=== PATIENT | female | born 1995 | race Caucasian/White ===

== ENCOUNTER 2016-12-06 20:44 | Emergency (ER) | payer OTHER ==
[~2016-12-06] VITALS: Ht 170.2 cm; Wt 54.5 kg
[2016-12-06 21:17] VITALS: BP 113/66; PULSE 69; RESP 16; O2SAT 100
--- NOTE | 2016-12-06 22:14 | ED.REPORT ---
HPI-Extremity Problem Lower Date of Service Dec 06, 2016 ED Provider: Carlo Gaming MD Patient is a 21 year old female presenting to the ED c/o left first toe pain onset 5 days ago. The pain has been progressively worsening and getting more swollen, which has resulted in increased pain when she walks. She has also noticed that the toe is producing green discharge and is concerned that it may be infected. Nursing Notes Stated Complaint: INFECTED TOE NAIL Chief Complaint: Extremity Trauma Nursing Notes Reviewed: Yes Allergies: Coded Allergies: Penicillins (Verified Allergy, Unknown, 12/06/16) General Time Seen by MD: 22:11 Chief Complaint Toe injury left 1 Hx Obtained From: Patient Arrived By: Walk-in Onset Occurred: 5 days ago Symptom Duration: Since onset Location: : Toe left 1 Quality: Painful Recent Healthcare: No recent doctor visit, No recent hospitalization Past Medical History Past Medical History none reported Past Surgical History none reported Smoking History Unknown if Ever Smoker Social History Other Social History: Good social support Ambulatory Status Independent Review of Systems Review of Systems Note: left 1st toe swelling green discharge from left 1st toe Musculoskeletal: Reports: Extremity pain (left first toe), Denies: Back pain Complete sys rev & neg: except as marked. Respiratory: Denies: Non-productive cough Cardiovascular: Denies: Chest pain GI: Denies: Abdominal pain, Nausea, Vomiting Physical Exam Initial Vital Signs Vital Signs (First) Date Time Temp Pulse Resp B/P Pulse Ox O2 Delivery O2 Flow Rate FiO2 12/06/16 21:17 36.5 69 16 113/66 100 Room Air Initial VS: Reviewed, Vital signs normal Lower Extremity / Pelvis / MS: Full range of motion Ankle / Foot: Neurologic intact, Vascular intact medial margin of the left first toe nail is ingrown with some redness and swelling minimal erythema tenderness of associated soft tissues General/Constitutional: Awake, Alert Respiratory / Chest: Atraumatic, Breath sounds NL, Breath sounds = bilat, No respiratory distress Cardiovascular: Heart rate NL, Regular rhythm, Heart sounds NL Skin: Atraumatic, No rash, Warm, Dry Neurologic: Oriented X3, Speech NL, No motor deficits, No sensory deficits Head / Eyes: Atraumatic, Normocephalic, PERRL, EOMI ENT: Atraumatic, Airway patent, Mucous membranes moist Neck: Atraumatic, Supple, Full range of motion Abdomen: Atraumatic, Soft, Non-tender Back: Atraumatic, Full range of motion Upper Extremity / MS: Atraumatic, Inspection NL, Full range of motion Psychiatric: Affect NL, Mood NL Procedures Ingrown Toenail Removal Time: 22:28 Procedure Performed by: ED physician Indication: Pain, Swelling, Erythema, Tenderness, Infection Consent / Setup / Site Prep: Consent from patient, Time-out performed, Hand hygiene observed, Stand sterile technique Skin Preparation Agent: Betadine Digit Involved: Great toe left Digital Block Procedure: Two digital nerve block, Lidocaine 1%, 5cc, 27g needle, Dorsal approach, Needle insert - web space, Anesthesia obtained Removal Procedure: Partial nail removal, Removed with scissors Post-Procedure / Complications: Antibiotic oint applied, Dressing placed, No complications, Condition improved, Tolerated procedure well, Patient stable Re-Eval/Medical Decision Med Decision/Clinical Course Minimally infected ingrown nail. Marginal resection performed without difficulty. Local antibiotic. Oral antibiotic is not needed. Re-Evaluation/Progress : Time of Eval: 22:28 Re-Evaluation/Progress Note: Patient rechecked. An ingrown toe nail removal to the left 1st toe was performed. The patient tolerated well and there were no complications. Discussed with patient diagnosis and plan to discharge. The patient agrees with the plan. All questions were addressed at this time. Counseled Regarding: Diagnosis, Need for follow-up, When/why to return to ED Discharge & Departure Impression: Primary Impression: Ingrown nail of great toe of left foot Additional Impression: Ingrowing nail with infection Disposition: Home Discharge Condition All VS Reviewed: Yes Condition: Stable Patient Instructions: Partial Nail Avulsion for Ingrown Nail (DC) Additional Instructions: The margin of the nail was removed. Leave the dressing in place for 48 hours, then daily dressing change with bacitracin and a Band-Aid. Okay to get it wet after 48 hours but do not soak it (no bathtub, no hot tub and no scuba diving). Elevation. Call me at [phone] which in the hours of 9 PM and 6 AM for the next couple of nights if you have any questions or concerns. Referrals: Claude Strong MD (PCP) Scribe Attestation Portions of this note were transcribed by Ricarda Talbot & Subhash Peña. I, Dr. Gaming personally performed the history, physical exam and medical decision-making; I reviewed and confirmed the accuracy of the information in the transcribed note. Signed by: Ricarda Talbot & Martha Maguire, 12/07/2016 and 0044. copies to: Claude Strong MD, Howard L MD Dec 06, 2016 22:14 Ricarda Talbot Dec 06, 2016 22:23 SUBHASH PEÑA Dec 07, 2016 00:29
== END 2016-12-06 23:02 | disposition home or self-care (01) ==
LOC: SED 20:44
DX: L60.0 Ingrowing nail (principal); Z88.0 Allergy status to penicillin